=== PATIENT | female | born 1990 | race Hispanic/Latino ===

== ENCOUNTER 2022-01-31 01:49 | Emergency (ER) | payer OTHER ==
[2022-01-31 02:42] LABS: Absolute Lymphocytes (CBC) 2.3 K/uL (0.7-4.9); Hematocrit 32.6 % (36.0-45.0); Lymphocytes % 26.8 % (15.3-44.8); MCV 83.9 fL (80-100); MPV 8.1 fL (7.6-11.3); RBC Red Blood Cell Count 3.89 M/uL (3.86-4.86)
[2022-01-31 02:45] LABS: Urine Blood Trace-intact (Negative); Urine Glucose Negative (Negative); Urine Protein Negative (Negative); Urine pH 5.5 (5.0-7.0)
[2022-01-31 02:52] LABS: Protime INR 1.05
[2022-01-31] MEDS ORDERED: NA CHLORIDE 0.9% 1,000 ML ONE (03:11)
[2022-01-31 03:13] LABS: Barbiturates NEGATIVE (NEGATIVE); Benzodiazepines NEGATIVE (NEGATIVE); Cocaine NEGATIVE (NEGATIVE); METHAMPHETAM POSITIVE (NEGATIVE); Methadone NEGATIVE (NEGATIVE); Opiates NEGATIVE (NEGATIVE); Phencyclidine NEGATIVE (NEGATIVE); THC Cannibis NEGATIVE (NEGATIVE)
[2022-01-31 03:26] LABS: ALT/SGPT 20 U/L (12-78); AST/SGOT 13 U/L (15-37); Albumin 3.3 g/dL (3.4-5.0); Alkaline Phosphatase 76 U/L (45-117); BUN Blood Urea Nitrogen 16 mg/dL (7-18); Bicarbonate 21 mmol/L (21-32); Bilirubin Total 0.1 mg/dL (0.2-1.0); Glomerular Filtration Rate 96 ml/min (=/>90); Glucose Level 115 mg/dL (74-106); Potassium 3.1 mmol/L (3.5-5.1); Protein, Total 6.6 g/dL (6.4-8.2); Sodium Level 140 mmol/L (136-145); Troponin High Sensitivity 3.4 pg/mL (<58.9)
[2022-01-31 03:27] LABS: Bilirubin Direct < 0.1 mg/dL (0-0.2)
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
[2022-01-31] MEDS ORDERED: POTASSIUM 25 MEQ EFFERV TAB ONE (08:15)
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
--- NOTE | 2022-01-31 13:30 | RAD REPORT ---
EXAM DESCRIPTION: CT - Head C Spine Mpr Wo Con - 01/31/2022 8:18 am CLINICAL HISTORY: 31 years, Female, AMS COMPARISON: None FINDINGS: Multiple transaxial tomograms of the brain were obtained from the base of the skull to the vertex without contrast. 2-D multiplanar reformats and the coronal and sagittal plane were performed and reviewed. Multiple axial CT images through the cervical spine were obtained at 2 mm slice thickness at 2 mm int erval reconstruction. In addition 2-D multiplanar reformats and the sagittal coronal plane were perfo rmed and reviewed. This exam was performed according to our departmental dose-optimization protocol, which includes auto mated exposure control, adjustment of the mA and/or kV according to patient size and/or use of iterat nellie reconstruction technique. CT head: Brain parenchyma as well as the root and white matter differentiation demonstrate to be unre markable. There is no midline shift and/or mass effect. There is no evidence for acute hemorrhage. No focal areas of hypodensities. Lateral ventricles and cisterns displace normal appearance. No int ra or extra axial fluid collections were seen. The calvarium is intact with no evidence for fracture. The visualized portions of the paranasal sinuses and orbits demonstrate to be clear. CT cervical spine: The alignment, vertebral body heights, and disc spaces are normal. There is no e vidence of fracture or subluxation. There are no significant degenerative changes. The spinal canal d emonstrate no evidence for significant stenosis. Neural foramina demonstrate to be unremarkable. The uncovertebral joints demonstrate to be normal. There is no prevertebral soft tissue swelling. The vis ualized portions of the lung apexes demonstrate to unremarkable. Sagittal coronal reformatted images demonstrate no subluxation or bony abnormalities. IMPRESSION: No acute intracranial hemorrhage shift. Unremarkable CT scan of the cervical spine. Electronically signed by: Stephen Marte MD 01/31/2022 2:38 AM CDT Due to temporary technical issues with the PACS/Fluency reporting system, reports are being signed by the in house radiologists without review as a courtesy to insure prompt reporting. The interpreting radiologist is fully responsible for the content of the report.
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
[2022-02-01 11:55] VITALS: BP 118/91; TEMP 98; O2SAT 99
--- NOTE | 2022-02-01 12:35 | EKG ---
Test Date: 2022-01-31 Test Time: 02:40:55 Vrt Mechanic: CAMRON MEASUREMENT RESULTS: Intervals: Rate: 85 ME: 152 QRSD: 90 QT: 368 QTc: 437 [place]: P: 46 ME: 152 QRS: 57 T: 42 INTERPRETIVE STATEMENTS: Normal sinus rhythm Normal ECG No previous ECG available for comparison Electronically Signed On 02-01-22 12:32:40 CDT by Rojelio Negron
== END 2022-01-31 09:00 | disposition home or self-care (01) ==
LOC: ER 01:49
DX: R41.82 Altered mental status, unspecified (principal); F10.129 Alcohol abuse with intoxication, unspecified; E87.6 Hypokalemia
CPT/HCPCS: 93005; 85025; 80048; 36415; 80320; 80329 ×2; 81025; 85610; 85379; 80076; 85730; 81003; 84484; 80307; 70450; 72125; 71260; 74177; 71045; 99284; Q9967; J7030